=== PATIENT | male | born 1995 | race Caucasian/White ===

== ENCOUNTER 2017-02-13 20:22 | Emergency (ER) | payer OTHER ==
[~2017-02-13] VITALS: Ht 180.3 cm; Wt 78.7 kg
[2017-02-13 20:22] VITALS: TEMP 36.6; O2SAT 95; Ht 180.3 cm; Wt 78.7 kg
[~2017-02-13 20:22] MED LIST: FLUO20CA35 PO; LORA-741 PO
[2017-02-13 21:33] LABS: BUN/CREATININE RATIO 15.6 (10-20); CREATININE 0.84 mg/dl (0.60-1.40)
[2017-02-13 21:34] LABS: POTASSIUM 3.4 mmol/L (3.5-5.1)
--- NOTE | 2017-02-14 00:30 | EMERGENCY ROOM VISIT NOTE ---
History Report prepared by Pily: Roscoe Champion Under the Supervision of: Dr. Pradip Hall D.O. First contact with patient: 20:24 Chief Complaint: ALCOHOL OVERDOSE Stated Complaint: ETOH History of Present Illness The patient is a 22 year old male who presents to the Emergency Room with an alcohol overdose. The patient states he was drinking at [employer] and had 2-3 mixed drinks. He reports he left the bar and was walking down the middle of the street with his shirt off. The patient denies falling and trauma. Patient denies any headache, chest pain or shortness of breath. Story was confirmed by EMS. HPI limited secondary to the patient's intoxication. Source of History: patient History Limited By: intoxication Review of Systems ROS limited secondary to the patient's intoxication. Past Medical & Surgical Medical Problems: (1) Anxiety (2) Depression Family History No pertinent family history Social History Smoking Status: Never Smoker Marital Status: single Housing Status: lives with family Occupation Status: employed Current/Historical Medications Unable to Obtain Active Prescriptions or Reported Meds Allergies Coded Allergies: Tetracycline (Verified Allergy, Unknown, rash, 11/20/15) Physical Exam Vital Signs Date Time Temp Pulse Resp B/P (MAP) Pulse Ox O2 Delivery O2 Flow Rate FiO2 02/14/17 00:17 97 02/13/17 23:47 91 16 101/51 95 Room Air 02/13/17 22:02 113/55 02/13/17 21:52 79 17 02/13/17 21:25 98 16 131/81 95 Room Air 02/13/17 21:22 81 20 02/13/17 20:52 102 13 96 02/13/17 20:36 94 02/13/17 20:29 139/82 02/13/17 20:22 95 Room Air 02/13/17 20:22 36.6 99 16 139/82 95 Room Air Physical Exam GENERAL: Laying face down, talking but slurring words EYE EXAM: conjunctiva are injected, PERRL and EOM's grossly intact HEAD: normal cephalic, atraumatic OROPHARYNX: no exudate, no erythema, lips, buccal mucosa, and tongue normal and mucous membranes are moist NECK: supple, no nuchal rigidity, no adenopathy, non-tender CHEST: Stable to compression anteriorly and posteriorly LUNGS: Clear to auscultation. Normal chest wall mechanics HEART: no murmurs, S1 normal and S2 normal ABDOMEN: abdomen soft, non-tender, normo-active bowel sounds, no masses, no rebound or guarding. PELVIS: Stable to compression anteriorly and posteriorly. BACK: Back is symmetrical on inspection and there is no deformity, no midline tenderness, no CVA tenderness. SKIN: no rashes and no bruising UPPER EXTREMITIES: upper extremities are grossly normal. LOWER EXTREMITIES: No pitting edema. NEURO EXAM: Awake, alert, following commands, visibly intoxicated. Medical Decision & Procedures Laboratory Results 02/13/17 20:57 Test 02/13/17 20:57 Anion Gap 8.0 mmol/L (3-11) Est Creatinine Clear Calc Drug Dose 145.6 ml/min Estimated GFR () 143.0 Estimated GFR (Non- 123.4 BUN/Creatinine Ratio 15.6 (10-20) Calcium Level 9.0 mg/dl (8.5-10.1) Ethyl Alcohol mg/dL 270.3 mg/dl (0-3) Laboratory results per my review. ED Course ED COURSE: Vital signs were reviewed and showed normotensive. The patients medical record was reviewed The above diagnostic studies were performed and reviewed. ED treatments and interventions as stated above. 6: The patient was evaluated in room A11B. A complete history and physical examination was performed. 2340: Upon reevaluation, the patient is arousable to loud stimuli and still visibly intoxicated. 0030: The patient was signed out to Dr. Jones at the end of shift. The patient remained stable while under my care. The patient appeared well at the time of the sign out. Medical Decision Differential diagnosis includes etiologies such as alcohol intoxication, toxicologic, infection, hypoglycemia, electrolyte abnormalities, cardiac sources , intracerebral event, neurologic, as well as others were entertained. Patient is a 22-year-old male who left [employer] and was walking in the middle of the street with his shirt off. He is brought in by EMS. He has no complaints. He is visibly intoxicated. Alcohol was 270. Mild hypokalemia secondary to alcohol. Patient was reassessed on multiple occasions. He awakens to voice and does follow commands. Still visibly intoxicated. Patient was signed out to Dr. Jones at change of shift. Patient can go in the morning after 6 AM with a sober friend or after 10 AM by himself in a cab if he can demonstrate that he is clinically sober. Medication Reconcilliation Current Medication List: was personally reviewed by me Blood Pressure Screening Patient's blood pressure: Normal blood pressure Blood pressure disposition: Did not require urgent referral Impression Primary Impression: Alcohol overdose Additional Impression: Alcohol abuse Scribe Attestation The scribe's documentation has been prepared under my direction and personally reviewed by me in its entirety. I confirm that the note above accurately reflects all work, treatment, procedures, and medical decision making performed by me. Departure Information Dispostion Still a Patient Prescriptions Unable to Obtain Active Prescriptions or Reported Meds Referrals Joanne Echevarria DO (PCP) Patient Instructions My [facility] Problem Qualifiers Primary Impression: Alcohol overdose Encounter type: initial encounter Injury intent: accidental or unintentional Qualified Codes: T51.91XA - Toxic effect of unspecified alcohol , accidental (unintentional), initial encounter
--- NOTE | 2017-02-14 03:22 | EMERGENCY ROOM VISIT NOTE ---
ED Visit Note First contact with patient: 02:22 This case was signed out to me at change of shift awaiting sobriety. At this time, the patient is fully awake and alert asking when he can leave. 0250: The patient was fully awake and alert and easily able to answer questions. He is calling a sober friend at this time to come get him. 0320: The patient is fully awake and alert. His mother will come pick him up from the emergency department and watch over him this morning. He was encouraged to avoid such excessive alcohol use in the future.
[2017-02-14 03:42] VITALS: BP 145/83; PULSE 83; O2SAT 97
== END 2017-02-14 03:44 | disposition home or self-care (01) ==
LOC: EDBD 20:22 → C.EDA 20:24
DX: T51.91XA Toxic effect of unspecified alcohol, accidental (unintentional), initial encounter (principal); F10.10 Alcohol abuse, uncomplicated

== ENCOUNTER → 2017-07-06 | Outpatient (CLI) | payer OTHER | END | disposition home or self-care (01) | LOC: C.LAB 01:26 | DX: Z02.83 Encounter for blood-alcohol and blood-drug test (principal) ==